=== PATIENT | female | born 1955 | race Caucasian/White ===

== ENCOUNTER 2018-03-23 17:50 | Emergency (ER) | payer OTHER ==
[~2018-03-23] VITALS: Ht 167.6 cm; Wt 107.0 kg
[2018-03-23] MEDS ORDERED: TENORMIN25 MG (18:07)
[2018-03-23] MEDS ORDERED: SYNTHROID100 MCG (18:07)
[2018-03-23] MEDS ORDERED: NAPROXEN500 MG PO (21:48)
== END 2018-03-23 21:52 | disposition home or self-care (01) ==
LOC: ER 17:50
DX: M25.562 Pain in left knee (principal)

== ENCOUNTER 2018-05-07 13:45 | Emergency (ER) | payer OTHER ==
[~2018-05-07] VITALS: Ht 167.6 cm; Wt 95.3 kg
[~2018-05-07 13:45] MED LIST: NAPROXEN500 MG PO; SYNTHROID100 MCG; TENORMIN25 MG
== END 2018-05-07 18:12 | disposition home or self-care (01) ==
LOC: ER 13:45
DX: M75.51 Bursitis of right shoulder (principal)

== ENCOUNTER 2019-11-03 12:27 | Emergency (ER) | payer OTHER ==
[~2019-11-03] VITALS: Ht 167.6 cm; Wt 101.6 kg
[2019-11-03] MEDS ORDERED: ATENOLOL25 MG PO (12:59)
== END 2019-11-03 16:00 | disposition home or self-care (01) ==
LOC: ER 12:27
DX: R10.12 Left upper quadrant pain (principal)

== ENCOUNTER 2020-03-05 12:17 | Emergency (ER) | payer OTHER ==
[~2020-03-05] VITALS: Ht 167.6 cm; Wt 100.2 kg
[~2020-03-05 12:17] MED LIST changes: +ATENOLOL25 MG PO
[2020-03-05] MEDS ORDERED: PROTONIX40 MG PO (12:32)
[2020-03-05] MEDS ORDERED: SIMVASTATIN40 MG PO (12:32)
[2020-03-05] MEDS ORDERED: SYNTHROID112 MCG PO (12:32)
[2020-03-05] MEDS ORDERED: PEPCID AC10 MG PO (12:33)
== END 2020-03-05 17:02 | disposition home or self-care (01) ==
LOC: ER 12:17
DX: R42 Dizziness and giddiness (principal); I16.0 Hypertensive urgency; F06.4 Anxiety disorder due to known physiological condition; Z20.828 Contact with and (suspected) exposure to other viral communicable diseases

== ENCOUNTER 2022-07-29 18:49 | Emergency (ER) | payer OTHER ==
[~2022-07-29] VITALS: Ht 167.6 cm; Wt 96.2 kg
[~2022-07-29 18:49] MED LIST changes: +PEPCID AC10 MG PO; +PROTONIX40 MG PO; +SIMVASTATIN40 MG PO; +SYNTHROID112 MCG PO
== END 2022-07-29 21:52 | disposition home or self-care (01) ==
LOC: ER 18:49
DX: J06.9 Acute upper respiratory infection, unspecified (principal); Z88.2 Allergy status to sulfonamides; Z88.6 Allergy status to analgesic agent; Z20.822 Contact with and (suspected) exposure to COVID-19

== ENCOUNTER 2023-05-01 10:35 | Emergency (ER) | payer OTHER ==
[~2023-05-01] VITALS: Ht 167.6 cm; Wt 98.0 kg
[2023-05-01] MEDS ORDERED: SYNTHROID125 MCG PO (11:02)
[2023-05-01] MEDS ORDERED: DIPHENHYDRAMINE HCL 50 MG/ML VIAL 1ML IM STA (11:32)
[2023-05-01] MEDS ORDERED: METHYLPREDNISOLONE SOD SUCC 125 MG VIAL IM STA (11:32)
[2023-05-01] MEDS ORDERED: ZITHROMAX TRI-500 MG PO (11:37)
[2023-05-01] MEDS ORDERED: LORATADINE10 M1 PO (11:37)
[2023-05-01] MEDS ORDERED: AZITHROMYCIN 500 MG TABLET PO ONE (11:45)
== END 2023-05-01 12:21 | disposition home or self-care (01) ==
LOC: ER 10:35
DX: J06.9 Acute upper respiratory infection, unspecified (principal); E78.00 Pure hypercholesterolemia, unspecified; E03.9 Hypothyroidism, unspecified; I10 Essential (primary) hypertension; Z88.8 Allergy status to other drugs, medicaments and biological substances
CPT/HCPCS: 96372; 99282; J1200; J2930

== ENCOUNTER 2023-10-19 16:30 | Emergency (ER) | payer OTHER ==
[~2023-10-19] VITALS: Ht 167.6 cm; Wt 98.0 kg
[~2023-10-19 16:30] MED LIST changes: +LORATADINE10 M1 PO; +SYNTHROID125 MCG PO; +ZITHROMAX TRI-500 MG PO
[2023-10-19] MEDS ORDERED: KETOROLAC TROMETHAMINE 30 MG VIAL IM STA (17:41)
[2023-10-19] MEDS ORDERED: KETOROLAC TROMETHAMINE 30 MG VIAL ONE (17:47)
== END 2023-10-19 19:31 | disposition home or self-care (01) ==
LOC: ER 16:31
DX: R07.89 Other chest pain (principal); Z88.1 Allergy status to other antibiotic agents; Z88.5 Allergy status to narcotic agent
CPT/HCPCS: 72070; 96372; 99283; J1885

== ENCOUNTER → 2024-08-28 | Emergency (ER) | payer OTHER ==
[~2024-08-28] VITALS: Ht 167.6 cm; Wt 95.3 kg
[~2024-08-28] MED LIST changes: +GUAIFENESIN/DEXTROMETHORPHAN 100MG/10ML BLIST.PACK PO ONE; +TUSSIN DM LIQU118 ML PO
[2024-08-28 19:53] LABS: BASO % 0.2 % (0.1-1.2); HEMATOCRIT 39.3 % (34.1-44.9); HEMOGLOBIN 12.8 g/dL (11.2-15.7); LYMPH # 1.43 (1.18-3.74); LYMPH % 23.4 % (19.3-53.1); MEAN CORPUSCULAR HEMOGLOBIN 28.7 pg (25.6-32.2); MONO # 0.05 (0.24-0.82); MONO % 0.8 % (4.7-12.5); NEUT # 4.59 (1.56-6.13); NEUT % 74.9 % (34.0-71.1); PLATELET COUNT 305 K/uL (163-369); RED BLOOD COUNT 4.46 M/uL (3.93-5.22); RED CELL DISTRIBUTION WIDTH 13.9 % (11.6-14.4)
[2024-08-28 20:28] LABS: COVID-19 AG NEGATIVE (NEGATIVE)
[2024-08-28 20:38] LABS: INFLUENZA A AG NEGATIVE (NEGATIVE); INFLUENZA B AG NEGATIVE (NEGATIVE)
== END | disposition home or self-care (01) ==
LOC: ER 17:46
PROVIDERS: General Practice
DX: J06.9 Acute upper respiratory infection, unspecified (principal); J00 Acute nasopharyngitis [common cold]; Z20.822 Contact with and (suspected) exposure to COVID-19; I10 Essential (primary) hypertension; E03.9 Hypothyroidism, unspecified; K43.9 Ventral hernia without obstruction or gangrene; Z88.8 Allergy status to other drugs, medicaments and biological substances

== ENCOUNTER → 2025-02-21 | Emergency (ER) | payer OTHER ==
[~2025-02-21] VITALS: Ht 167.6 cm; Wt 96.2 kg
[~2025-02-21] MED LIST changes: +FAMOTIDINE/PF 20 MG/2 ML VIAL IV ONE; +FAMOTIDINE/PF 20 MG/2 ML VIAL ONE; -GUAIFENESIN/DEXTROMETHORPHAN 100MG/10ML BLIST.PACK PO ONE; +KETOROLAC TROMETHAMINE 30 MG VIAL IU ONE; +KETOROLAC TROMETHAMINE 30 MG VIAL ONE; +MAG HYDROX/ALUMINUM HYD/SIMETH 30 ML BLIST.PACK PO ONE
== END | disposition left against medical advice (07) ==
LOC: ER 19:50
DX: K29.60 Other gastritis without bleeding (principal); Z88.8 Allergy status to other drugs, medicaments and biological substances
CPT/HCPCS: 96365; 99282; J1885; J3490